=== PATIENT | male | born 1970 | race Caucasian/White ===

== ENCOUNTER 2024-01-31 12:27 | Emergency (ER) | payer OTHER, SELFPAY ==
[2024-01-31] VITALS (8 sets, daily range): BP systolic 136–169; BP diastolic 79–95; PULSE 82–99; RESP 16–18; TEMP 35.5–37.3; O2SAT 97–100; BMI 26.4
[2024-01-31 13:08] LABS: Add Manual Diff / Slide Review NO; Basophils Absolute Auto 0 /uL (0-100); Basophils Percent Auto 0.2 % (0-2); Eosinophils Absolute Auto 300 /uL (0-450); Eosinophils Percent Auto 1.5 % (2-4); Hemoglobin 15.7 g/dL (13.5-17.5); Lymphocytes Absolute Auto 1100 /uL (1100-4500); Lymphocytes Percent Auto 6.4 % (25-40); Mean Corpuscular HGB Conc 34.9 % (30-36); Mean Corpuscular Hemoglobin 31.8 PG (26-34); Mean Corpuscular Volume 91.2 fL (80-100); Monocytes Absolute Auto 2100 /uL (0-900); Monocytes Percent Auto 11.9 % (3-14); Neutrophils Absolute Auto 13900 /uL (1500-7000); Platelet Count 232 X10^3/uL (150-400); Red Blood Cell Count 4.93 X10^6/uL (4.5-5.9); Red Cell Distribution Width 13.5 % (11.6-14.8); White Blood Cell Count 17.3 X10^3/uL (4.5-11.0)
[2024-01-31 13:19] LABS: Alanine Aminotransferase 25 IU/L (<50); Albumin 4.5 g/dL (3.5-5.0); Albumin Globulin Ratio 1.3 (1.0-2.8); Alkaline Phosphatase 85 U/L (38-126); Aspartate Aminotransferase 28 IU/L (17-59); Bilirubin Total 1.7 mg/dL (0.2-1.3); Blood Urea Nitrogen 15 mg/dL (9-20); Calcium 9.6 mg/dL (8.4-10.2); Carbon Dioxide 29 mmol/L (22-32); Chloride 98 mmol/L (98-107); Estimated Glomerular Filt Rate > 60 mL/min (>60); Globulin 3.6 g/dL (1.7-4.1); Glucose 135 mg/dL (70-100); HEMOLYSIS < 15 (0-50); Lipase 403 U/L (23-300); Sodium 136 mmol/L (137-145); Total Protein 8.1 g/dL (6.3-8.2)
[2024-01-31 13:54] LABS: Urine Volume 10mL (spun)
--- NOTE | 2024-01-31 13:55 | DI.US.S_ITS ---
PROCEDURE: US ABDOMEN LIMITED INDICATIONS: RUQ, epigastric pain TECHNIQUE: Real-time scanning was performed of the abdominal and retroperitoneal organs, with image documentation. COMPARISON: None. FINDINGS: Liver: Liver is normal in size and homogeneous in echotexture. Gallbladder: No gallstones. No wall thickening. No pericholecystic edema. Negative sonographic Acevedo's sign. Biliary ducts: Intrahepatic bile ducts are non-dilated. Extrahepatic bile duct caliber measures 3 mm. Normal is 6-7 mm or less in diameter, or 10 mm or less post-cholecystectomy. Pancreas: Heterogeneous echogenicity of the pancreatic head. Miscellaneous: No free abdominal fluid. IMPRESSION: No gallbladder pathology. Heterogeneous echogenicity of the pancreatic head. Please see same day CT for further discussion. Dictated by: Eduardo Ortega M.D. on 01/31/2024 at 14:46 Approved by: Eduardo Ortega M.D. on 01/31/2024 at 14:47
[2024-01-31 13:58] LABS: Bacteria Urine None Seen; RBC Urine 1-5/HPF (0-5/HPF); Squamous Epithelial Cell Urine None Seen (0-5/HPF); WBC Urine None Seen (0-5/HPF)
--- NOTE | 2024-01-31 13:58 | DI.CT.S_ITS ---
PROCEDURE: CT CHEST ABD PEL W CON INDICATIONS: abd pain TECHNIQUE: After the administration of intravenous contrast, 5 mm thick sections acquired from the lung apices to the symphysis. 5 mm coronal and sagittal reformats were performed, with additional 7 mm MIP reformats through the lungs. For radiation dose reduction, the following was used: automated exposure control, adjustment of mA and/or kV according to patient size. COMPARISON: None. FINDINGS: Image quality: Excellent. CHEST: Lower Neck: No enlarged lymph nodes. Thyroid: No thyroid nodules which require sonographic follow up, per consensus guidelines. Axillae: No enlarged lymph nodes. Chest Wall: Unremarkable. Lungs and Pleura: No pneumothorax or pleural effusions. No consolidation or suspicious nodules. Heart: Heart size is normal. No pericardial effusion. Thoracic Vessels: The aorta and pulmonary arteries demonstrate normal size. Mediastinum and [place]: No enlarged lymph nodes. Esophagus: No wall thickening. No hiatal hernia. ABDOMEN: Liver: No solid mass. Coarse calcification along the medial, posterior margin, probably post infectious, posttraumatic or inflammatory. Gallbladder: No radiopaque gallstones or wall thickening. Biliary ducts: No biliary dilation. Pancreas: Homogeneous enhancement of the pancreas. There is fat stranding about the pancreatic head. No ductal dilation. No acute peripancreatic collection. Spleen: Size is within normal limits. Adrenal Glands: No adrenal nodules. Kidneys and Ureters: No hydronephrosis. No solid mass. No complex renal cystic lesion which requires follow up. Stomach and Bowel: Normal colonic caliber, without significant wall thickening. Colonic diverticulosis without evidence of diverticulitis. Peritoneum: No abnormal intraperitoneal fluid. No free air. Ventral Wall: No significant ventral hernia. Small umbilical hernia containing fat. Abdominal Nodes: No retroperitoneal or mesenteric adenopathy by size criteria. Vessels: Aorta and inferior vena cava are normal in size. Splenic vein is widely patent. PELVIS: Pelvic Organs: Unremarkable. Bladder: No bladder wall thickening, accounting for underdistention. Pelvic Nodes: No enlarged lymph nodes. Miscellaneous: Small , fat containing inguinal hernias. Bones: No aggressive osseous abnormality. IMPRESSION: Acute interstitial pancreatitis. No vascular complication or acute peripancreatic collection. Colonic diverticulosis without evidence of diverticulitis. Dictated by: Eduardo Ortega M.D. on 01/31/2024 at 14:42 Approved by: Eduardo Ortega M.D. on 01/31/2024 at 14:45
[2024-01-31 13:59] LABS: Lactate (Lactic Acid) 3.1 mmol/L (0.7-2.1)
[2024-01-31] MEDS: SODIUM CHLORIDE 0.9% 1,000 ML 1000 ML IV (14:19)
[2024-01-31] MEDS: KETOROLAC 30 MG/ML VIAL 15 MG IV (14:20)
[2024-01-31] MEDS: ONDANSETRON 4 MG/2 ML INJ IV (14:20)
--- NOTE | 2024-01-31 14:37 | ED_ITS ---
HPI - Abdominal Pain <Shani Anderson PA-C - Last Filed: 01/31/24 18:49> General Chief Complaint: Abdominal Pain Stated Complaint: sent by pcp, rule out diverticulitis Time Seen by Provider: 01/31/24 12:49 Source: patient Mode of arrival: Ambulatory History of Present Illness HPI narrative: 53-year-old male with past medical history hypertension, hyperlipidemia, obstructive sleep apnea presents to the ED with 3 days of abdominal pain, constipation. Patient states that his symptoms started over the weekend as epigastric and periumbilical pain, he felt constipated and took some laxatives. Patient had a bowel movement this morning. No hematochezia or melena. Patient also complains of mid upper back pain. Patient endorses subjective fever, chills, nausea. Denies chest pain, shortness of breath, rhinorrhea, cough, vomiting, lightheadedness, dizziness, syncope. No history of abdominal surgeries. No history of kidney stones or gallstones. Patient was seen by his PCP this morning, sent to the ED for further evaluation and due to concern for diverticulitis. No history of prior diverticulitis. Patient does drink alcohol occasionally, denies heavy drinking. Patient did endorse that 2 Saturdays ago, he did consume a lot of alcohol when his community got together for a [email or web address] green party. Related Data Previous Rx's Medication Instructions Recorded ciprofloxacin HCl 500 mg tablet 500 mg PO BID #6 tabs 09/21/16 (Cipro) doxycycline monohydrate 100 mg 100 mg PO BID #44 caps 09/21/16 capsule albuterol sulfate 90 mcg/actuation 1 puff INH SEE INSTRUCTIONS ##8 10/04/16 aerosol inhaler (Ventolin HFA) azithromycin 250 mg tablet 250 mg PO QDAY #6 tabs 10/04/16 (Zithromax) fluticasone propionate 50 0 intranasal SEE INSTRUCTIONS ##1 10/04/16 mcg/actuation nasal spray,suspension (Flonase Allergy Relief) hydrocodone 10 mg-chlorpheniramine 5 ml OR BID #115 mL 10/04/16 8 mg/5 mL oral susp extend.rel 12hr (Tussionex Pennkinetic ER) ondansetron 4 mg disintegrating 4 mg PO Q8H PRN nausea and 01/31/24 tablet vomiting #30 tabs oxycodone-acetaminophen 5 mg-325 1 tab PO TID PRN pain #15 tabs 01/31/24 mg tablet Allergies Allergy/AdvReac Type Severity Reaction Status Date / Time No Known Drug Allergies Allergy Verified 01/31/24 12:40 Review of Systems <Shani Anderson PA-C - Last Filed: 01/31/24 18:49> Constitutional Constitutional: Reports chills, Denies fatigue, Reports fever(s), Denies frequent falls, Denies lethargy and Denies weakness Eyes Eyes: Denies change in vision, Denies eye discharge, Denies irritation and Denies loss of vision ENT Ears, Nose, Mouth, and Throat: Denies change in voice, Denies dizziness, Denies neck pain, Denies sore throat and Denies throat swelling Cardiovascular Cardiovascular: Denies chest pain, Denies irregular heart rhythm, Denies lightheadedness, Denies palpitations, Denies dyspnea, Denies dyspnea on exertion and Denies orthopnea Respiratory Respiratory: Denies cough, Denies dyspnea, Denies dyspnea on exertion and Denies wheezing Gastrointestinal Gastrointestinal: Reports abdominal pain, Denies change in bowel habits, Reports constipation, Denies diarrhea, Reports nausea and Denies vomiting Musculoskeletal Musculoskeletal: Reports back pain, Denies neck pain and Denies numbness Integumentary/Breasts Skin/Breast: Denies pruritus, Denies erythema, Denies rash and Denies wounds Neurologic Neurologic: Denies behavioral changes, Denies confusion, Denies dizziness, Denies frequent falls, Denies loss of vision, Denies numbness and Denies weakness Psychiatric Psychiatric: Denies anxiety, Denies behavioral changes, Denies confusion, Denies depression, Denies homicidal ideation and Denies suicidal ideation Endocrine Endocrine: Denies fatigue, Denies flushing and Denies palpitations Hematologic/Lymphatic Hematologic/Lymphatic: Denies easy bruising Allergic/Immunologic Allergic/Immunologic: Denies urticaria, Denies throat swelling and Denies wheezing Patient History <Shani Anderson PA-C - Last Filed: 01/31/24 18:49> Surgical History (Updated 01/03/18 @ 06:03 by Conversion Provider) Status post myringotomy with insertion of tube Status post myringotomy with insertion of tube Family History (Updated 09/26/16 @ 00:00 by Conversion Provider) Father Age: 78 Essential hypertension High cholesterol Grandfather Mental health problem Grandmother Heart disease Lung infection Mother Age: 78 Heart disease Grandfather Heart disease Grandmother Heart disease Social History Smoking Status: Never smoker Smoking Status: Never smoker alcohol intake frequency: a few times a month Substance Use Type: does not use Exam <Shani Anderson PA-C - Last Filed: 01/31/24 18:49> Narrative Exam Narrative: Const General:?cooperative, healthy appearing and comfortable [facility] Head:?normal to inspection Ears:?hearing grossly normal bilaterally Nose:?external nose normal Face and sinus:?normal facial exam and sinuses nontender Mouth:?oral mucosae normal Throat:?posterior oropharynx normal Eyes General:?appearance normal, both eyes and all related structures Neck Neck:?normal visual inspection and no lymphadenopathy noted Resp Effort & Inspection:?normal respiratory effort Auscultation:?clear to auscultation bilaterally Cardio Rate:?regular rate Rhythm:?regular rhythm GI Abdomen is soft, nondistended, tender to palpation in the epigastric and right upper quadrants. No CVA tenderness. Neuro General:?patient alert, patient awake and patient oriented x3 Initial Vital Signs Initial Vital Signs: Vital Signs Temperature 96 F L 01/31/24 12:36 Pulse Rate 89 01/31/24 12:36 Respiratory Rate 16 01/31/24 12:36 Blood Pressure 159/95 H 01/31/24 12:36 Pulse Oximetry 99 01/31/24 12:36 Oxygen Delivery Method Room Air 01/31/24 12:36 <Violet Pham MD - Last Filed: 02/01/24 02:24> Initial Vital Signs Initial Vital Signs: Vital Signs Temperature 96 F L 01/31/24 12:36 Pulse Rate 89 01/31/24 12:36 Respiratory Rate 16 01/31/24 12:36 Blood Pressure 159/95 H 01/31/24 12:36 Pulse Oximetry 99 01/31/24 12:36 Oxygen Delivery Method Room Air 01/31/24 12:36 Course <Shani Anderson PA-C - Last Filed: 01/31/24 18:49> Orders Ordered: Discontinued Medications Sodium Chloride (Normal Saline 0.9%) 1,000 mls @ 1,000 mls/hr IV BOLUS ONE Stop: 01/31/24 15:04 Last Infusion: 01/31/24 15:15 Dose: Infused Documented By: Admin: 01/31/24 14:19 Dose: 1,000 mls/hr Documented By: CHERYL Ciprofloxacin (Cipro) 400 mg in 200 mls @ 200 mls/hr IV NOW ONE Stop: 01/31/24 16:33 Last Infusion: 01/31/24 17:15 Dose: Infused Documented By: Admin: 01/31/24 15:52 Dose: 200 mls/hr Documented By: CHERYL Metronidazole (Flagyl) 500 mg in 100 mls @ 100 mls/hr IV NOW ONE Stop: 01/31/24 16:33 Last Infusion: 01/31/24 19:45 Dose: Infused Documented By: Admin: 01/31/24 18:36 Dose: 100 mls/hr Documented By: HAZEL Sodium Chloride (Normal Saline 0.9%) 1,000 mls @ 100 mls/hr IV CONT BARBARA Last Infusion: 01/31/24 20:44 Dose: Infused Documented By: Admin: 01/31/24 15:52 Dose: 100 mls/hr Documented By: CHERYL Ketorolac Tromethamine (Ketorolac 30 Mg/Ml Vial) 15 mg IV NOW ONE Stop: 01/31/24 14:01 Last Admin: 01/31/24 14:20 Dose: 15 mg Documented By: CHERYL Morphine Sulfate (Morphine 4 Mg/Ml Inj) 4 mg IV NOW ONE Stop: 01/31/24 16:21 Last Admin: 01/31/24 16:24 Dose: 4 mg Documented By: CHERYL Ondansetron HCl (Ondansetron 4 Mg Odt) 4 mg PO NOW PRN PRN Reason: Nausea And Vomiting Ondansetron HCl (Ondansetron 4 Mg/2 Ml Inj) 4 mg IV NOW PRN PRN Reason: Nausea And Vomiting Ondansetron HCl (Ondansetron 4 Mg/2 Ml Inj) 4 mg IV NOW ONE Stop: 01/31/24 14:01 Last Admin: 01/31/24 14:20 Dose: 4 mg Documented By: CHERYL Ondansetron HCl (Ondansetron 4 Mg Odt Prepack) 1 bottle MISC DIRECTED ONE Stop: 01/31/24 20:33 Last Admin: 01/31/24 20:44 Dose: 1 bottle Documented By: HAZEL Oxycodone/Acetaminophen (Oxycodone/Apap 5/325 Prepack) 1 bottle MISC DIRECTED ONE Stop: 01/31/24 20:33 Last Admin: 01/31/24 20:44 Dose: 1 bottle Documented By: HAZEL Vital Signs Vital signs: Vital Signs - 8 hr 01/31/24 18:46 01/31/24 20:55 Pulse Rate 92 H 99 H Respiratory Rate 16 16 Blood Pressure 139/91 H 169/93 H Pulse Oximetry 98 100 Oxygen Delivery Method Room Air Room Air <Violet Pahm MD - Last Filed: 02/01/24 02:24> Orders Ordered: Discontinued Medications Sodium Chloride (Normal Saline 0.9%) 1,000 mls @ 1,000 mls/hr IV BOLUS ONE Stop: 01/31/24 15:04 Last Infusion: 01/31/24 15:15 Dose: Infused Documented By: Admin: 01/31/24 14:19 Dose: 1,000 mls/hr Documented By: CHERYL Ciprofloxacin (Cipro) 400 mg in 200 mls @ 200 mls/hr IV NOW ONE Stop: 01/31/24 16:33 Last Infusion: 01/31/24 17:15 Dose: Infused Documented By: Admin: 01/31/24 15:52 Dose: 200 mls/hr Documented By: CHERYL Metronidazole (Flagyl) 500 mg in 100 mls @ 100 mls/hr IV NOW ONE Stop: 01/31/24 16:33 Last Infusion: 01/31/24 19:45 Dose: Infused Documented By: Admin: 01/31/24 18:36 Dose: 100 mls/hr Documented By: HAZEL Sodium Chloride (Normal Saline 0.9%) 1,000 mls @ 100 mls/hr IV CONT BARBARA Last Infusion: 01/31/24 20:44 Dose: Infused Documented By: Admin: 01/31/24 15:52 Dose: 100 mls/hr Documented By: CHERYL Ketorolac Tromethamine (Ketorolac 30 Mg/Ml Vial) 15 mg IV NOW ONE Stop: 01/31/24 14:01 Last Admin: 01/31/24 14:20 Dose: 15 mg Documented By: CHERYL Morphine Sulfate (Morphine 4 Mg/Ml Inj) 4 mg IV NOW ONE Stop: 01/31/24 16:21 Last Admin: 01/31/24 16:24 Dose: 4 mg Documented By: CHERYL Ondansetron HCl (Ondansetron 4 Mg Odt) 4 mg PO NOW PRN PRN Reason: Nausea And Vomiting Ondansetron HCl (Ondansetron 4 Mg/2 Ml Inj) 4 mg IV NOW PRN PRN Reason: Nausea And Vomiting Ondansetron HCl (Ondansetron 4 Mg/2 Ml Inj) 4 mg IV NOW ONE Stop: 01/31/24 14:01 Last Admin: 01/31/24 14:20 Dose: 4 mg Documented By: CHERYL Ondansetron HCl (Ondansetron 4 Mg Odt Prepack) 1 bottle MISC DIRECTED ONE Stop: 01/31/24 20:33 Last Admin: 01/31/24 20:44 Dose: 1 bottle Documented By: HAZEL Oxycodone/Acetaminophen (Oxycodone/Apap 5/325 Prepack) 1 bottle MISC DIRECTED ONE Stop: 01/31/24 20:33 Last Admin: 01/31/24 20:44 Dose: 1 bottle Documented By: HAZEL Vital Signs Vital signs: Vital Signs - 8 hr 01/31/24 18:46 01/31/24 20:55 Pulse Rate 92 H 99 H Respiratory Rate 16 16 Blood Pressure 139/91 H 169/93 H Pulse Oximetry 98 100 Oxygen Delivery Method Room Air Room Air MDM - Abdominal Pain <Shani Anderson PA-C - Last Filed: 01/31/24 18:49> Lab Data 01/31/24 12:49 01/31/24 12:49 Labs: Lab Results 01/31/24 01/31/24 01/31/24 Range/Units 12:49 13:35 15:38 WBC 17.3 H (4.5-11.0) X10^3/uL RBC 4.93 (4.5-5.9) X10^6/uL Hgb 15.7 (13.5-17.5) g/dL Hct 45.0 (41-53) % MCV 91.2 (80-100) fL MCH 31.8 (26-34) PG MCHC 34.9 (30-36) % RDW 13.5 (11.6-14.8) % Plt Count 232 (150-400) X10^3/uL Neut % (Auto) 80.0 H (50-75) % Lymph % (Auto) 6.4 L (25-40) % [place] % (Auto) 11.9 (3-14) % Eos % (Auto) 1.5 L (2-4) % Baso % (Auto) 0.2 (0-2) % Neut # (Auto) 21236 H (1297-7995) /uL Lymph # (Auto) 1100 (0314-4965) /uL [place] # (Auto) 2100 H (0-900) /uL Eos # (Auto) 300 (0-450) /uL Baso # (Auto) 0 (0-100) /uL Sodium 136 L (137-145) mmol/L Potassium 4.0 (3.4-5.1) mmol/L Chloride 98 (98-107) mmol/L Carbon Dioxide 29 (22-32) mmol/L BUN 15 (9-20) mg/dL Creatinine 0.79 (0.66-1.25) mg/dL Estimated GFR > 60 (>60) mL/min BUN/Creatinine Ratio 19.0 (6-22) Glucose 135 H (70-100) mg/dL Lactate 3.1 H 1.1 (0.7-2.1) mmol/L Calcium 9.6 (8.4-10.2) mg/dL Total Bilirubin 1.7 H (0.2-1.3) mg/dL AST 28 (17-59) IU/L ALT 25 (<50) IU/L Alkaline Phosphatase 85 (38-126) U/L Lactate Dehydrogenase 198 (120-246) U/L Total Protein 8.1 (6.3-8.2) g/dL Albumin 4.5 (3.5-5.0) g/dL Globulin 3.6 (1.7-4.1) g/dL Albumin/Globulin Ratio 1.3 (1.0-2.8) Triglycerides 92 (35-150) mg/dL Lipase 403 H (23-300) U/L Urine RBC 1-5/hpf (0-5/HPF) Urine WBC None seen (0-5/HPF) Ur Squamous Epith Cells None seen (0-5/HPF) Urine Bacteria None seen (None) Vol Urine Centrifuged 10ml (spun) Point of care testing: Urine Dip Bedside Urine Glucose Negative Bedside Urine Bilirubin - Negative Bedside Urine Ketone +++ 80 Urine Specific [place] 1.015 Bedside Urine Occult Blood +/- Bedside Urine pH 5.5 Bedside Urine Protein +/- 15 Bedside Urine Urobilinogen - Negative Bedside Urine Nitrite - Negative Bedside Urine Leukocytes - Negative Esterase MDM Narrative Medical decision making narrative: 53-year-old male with past medical history hypertension, hyperlipidemia, obstructive sleep apnea presents to the ED with 3 days of abdominal pain, constipation. Concern for pancreatitis versus cholelithiasis versus cholecystitis versus choledochal cholelithiasis versus gastritis versus peptic ulcer disease versus diverticulitis versus appendicitis versus UTI versus pyelonephritis versus nephrolithiasis versus other intra-abdominal pathology versus other. Will obtain labs, lipase, lactate, UA, CT abdomen pelvis, ultrasound abdomen. Will give IV fluids, ketorolac, Zofran for symptoms. Will reassess. Labs with an elevated white count of 17.3, elevated total bilirubin of 1.7, elevated lipase of 403. Lactate was elevated to 3.1. Urine shows some ketones and occult blood, no infection. CT abdomen pelvis shows acute interstitial pancreatitis. No vascular complication or acute peripancreatic collection. No other acute findings. Patient was given morphine for further pain control. Lactate improved 1.1 with IV fluids. Nausea controlled with Zofran. MRCP ordered for further characterization. Hospitalist Dr. Durand was consulted, he would prefer to wait for MRCP results prior to admitting. Patient signed out to Dr. Violet Pham. <Violet Pham MD - Last Filed: 02/01/24 02:24> Lab Data Labs: Lab Results 01/31/24 01/31/24 01/31/24 Range/Units 12:49 13:35 15:38 WBC 17.3 H (4.5-11.0) X10^3/uL RBC 4.93 (4.5-5.9) X10^6/uL Hgb 15.7 (13.5-17.5) g/dL Hct 45.0 (41-53) % MCV 91.2 (80-100) fL MCH 31.8 (26-34) PG MCHC 34.9 (30-36) % RDW 13.5 (11.6-14.8) % Plt Count 232 (150-400) X10^3/uL Neut % (Auto) 80.0 H (50-75) % Lymph % (Auto) 6.4 L (25-40) % [place] % (Auto) 11.9 (3-14) % Eos % (Auto) 1.5 L (2-4) % Baso % (Auto) 0.2 (0-2) % Neut # (Auto) 10147 H (9069-0381) /uL Lymph # (Auto) 1100 (2270-8162) /uL [place] # (Auto) 2100 H (0-900) /uL Eos # (Auto) 300 (0-450) /uL Baso # (Auto) 0 (0-100) /uL Sodium 136 L (137-145) mmol/L Potassium 4.0 (3.4-5.1) mmol/L Chloride 98 (98-107) mmol/L Carbon Dioxide 29 (22-32) mmol/L BUN 15 (9-20) mg/dL Creatinine 0.79 (0.66-1.25) mg/dL Estimated GFR > 60 (>60) mL/min BUN/Creatinine Ratio 19.0 (6-22) Glucose 135 H (70-100) mg/dL Lactate 3.1 H 1.1 (0.7-2.1) mmol/L Calcium 9.6 (8.4-10.2) mg/dL Total Bilirubin 1.7 H (0.2-1.3) mg/dL AST 28 (17-59) IU/L ALT 25 (<50) IU/L Alkaline Phosphatase 85 (38-126) U/L Lactate Dehydrogenase 198 (120-246) U/L Total Protein 8.1 (6.3-8.2) g/dL Albumin 4.5 (3.5-5.0) g/dL Globulin 3.6 (1.7-4.1) g/dL Albumin/Globulin Ratio 1.3 (1.0-2.8) Triglycerides 92 (35-150) mg/dL Lipase 403 H (23-300) U/L Urine RBC 1-5/hpf (0-5/HPF) Urine WBC None seen (0-5/HPF) Ur Squamous Epith Cells None seen (0-5/HPF) Urine Bacteria None seen (None) Vol Urine Centrifuged 10ml (spun) Point of care testing: Urine Dip Bedside Urine Glucose Negative Bedside Urine Bilirubin - Negative Bedside Urine Ketone +++ 80 Urine Specific [place] 1.015 Bedside Urine Occult Blood +/- Bedside Urine pH 5.5 Bedside Urine Protein +/- 15 Bedside Urine Urobilinogen - Negative Bedside Urine Nitrite - Negative Bedside Urine Leukocytes - Negative Esterase MDM Narrative Medical decision making narrative: 53-year-old male with past medical history hypertension, hyperlipidemia, obstructive sleep apnea presents to the ED with 3 days of abdominal pain, constipation. Concern for pancreatitis versus cholelithiasis versus cholecystitis versus choledochal cholelithiasis versus gastritis versus peptic ulcer disease versus diverticulitis versus appendicitis versus UTI versus pyelonephritis versus nephrolithiasis versus other intra-abdominal pathology versus other. Will obtain labs, lipase, lactate, UA, CT abdomen pelvis, ultrasound abdomen. Will give IV fluids, ketorolac, Zofran for symptoms. Will reassess. Labs with an elevated white count of 17.3, elevated total bilirubin of 1.7, elevated lipase of 403. Lactate was elevated to 3.1. Urine shows some ketones and occult blood, no infection. CT abdomen pelvis shows acute interstitial pancreatitis. No vascular complication or acute peripancreatic collection. No other acute findings. Patient was given morphine for further pain control. Lactate improved 1.1 with IV fluids. Nausea controlled with Zofran. MRCP ordered for further characterization. Hospitalist Dr. Durand was consulted, he would prefer to wait for MRCP results prior to admitting. Patient signed out to Dr. Violet Pham. Dr. Pham -case discussed with me, independent review of patient and chart performed. MRCP shows mild pancreatic edema without evidence of obstructing stone or infected fluid collection. Patient reassessed, he states his pain is currently a 3/4, he was mildly nauseous but states that he would like to try drinking fluids and crackers. All lab and imaging findings discussed with the patient at bedside. Offered admission for pain control and IV fluids, however patient stated that he would prefer to go home at this time and tried to manage his symptoms at home. Pain and nausea medication sent to pharmacy of choice and prepack sent home with patient for overnight symptom control. Clear liquid diet discussed with the patient as well as general progression to full diet as tolerated over the next week. Patient given strict ED return precautions if he feels that his symptoms are not well controlled or if he was not improving. Discharge Plan Departure Patient Disposition: Home Clinical Impression: Acute pancreatitis Qualifiers: Pancreatitis type: idiopathic Acute pancreatitis complication: unspecified Q ualified Code(s): K85.00 - Idiopathic acute pancreatitis without necrosis or infection Instructions: DI for Pancreatitis Activity Restrictions/Additional Instructions: Your laboratory work, CT imaging, MRI imaging indicate that you have acute pancreatitis. I do not know the exact cause of your pancreatitis, however 15- 20% of all cases of pancreatitis or idiopathic, meaning we do not have an obvious cause. Pain and nausea medications has been sent to your pharmacy. For the next several days I recommend following a clear liquid diet of small, low- fat meals. Over the next 3-6 days you may advance your diet as tolerated, however I do recommend a decrease in fat intake. If you drink alcohol I recommend against alcohol intake for the next several weeks. I recommend following up with the GI doctor since we do not know the cause of your pancreatitis. A referral is in your paperwork. Prescriptions: New ondansetron 4 mg tablet,disintegrating 4 mg PO Q8H PRN (Reason: nausea and vomiting) Qty: 30 0RF oxycodone-acetaminophen 5-325 mg tablet 1 tab PO TID PRN (Reason: pain) Qty: 15 0RF No Action ciprofloxacin HCl [Cipro] 500 MG tablet 500 mg PO BID Qty: 6 0RF doxycycline monohydrate 100 MG capsule 100 mg PO BID Qty: 44 0RF azithromycin [Zithromax] 250 MG tablet 250 mg PO QDAY Qty: 6 0RF hydrocodone-chlorpheniramine [Tussionex Pennkinetic ER] 115 ML suspension,extended rel 12 hr 5 ml OR BID Qty: 115 0RF albuterol sulfate [Ventolin HFA] 90 MCG/PUFF HFA aerosol inhaler 1 puff INH SEE INSTRUCTIONS Qty: 8 0RF fluticasone propionate [Flonase Allergy Relief] 9.9 ML spray,suspension 0 Intranasal SEE INSTRUCTIONS Qty: 1 0RF Referrals: Magan Cramer MD [Non-Staff] - Kenia Betancourt MD [Primary Care Provider] - Stand Alone Forms: Patient Portal/API
[2024-01-31 15:17] LABS: Lactate Dehydrogenase 198 U/L (120-246)
[2024-01-31 15:18] LABS: Triglycerides 92 mg/dL (35-150)
[2024-01-31 15:26] LABS: Reflexed Lactate in 2 Hours Y
--- NOTE | 2024-01-31 15:34 | DI.MRI.S_ITS ---
PROCEDURE: MR AB PANCREATIC/MRCP PROTOCOL INDICATIONS: pancreatitis TECHNIQUE: Coronal HASTE through the abdomen, axial 2-D FLASH in- and [id number], and breath-hold T2 FSE with fat saturation through the biliary system and pancreas. Oblique coronal and axial thin-slice HASTE, radial thick-slab HASTE centered on the extrahepatic bile ducts. Intravenous secretin: Not requested. COMPARISON: [facility], CT, CT CHEST ABD PEL W CON, 01/31/2024, 14:03. [facility], US, US ABDOMEN LIMITED, 01/31/2024, 14:16. FINDINGS: Image quality: Diagnostic. Gallbladder: No gallstones or wall thickening. Biliary ducts: No biliary dilation. Pancreas: Mild peripancreatic edema is seen at the pancreatic head. No focal fluid collection. No pancreatic duct dilatation. Pancreatic body and tail appear normal. OTHER: Lung bases: Unremarkable. Liver: No solid mass. Spleen: Size is within normal limits. Adrenal Glands: No adrenal nodules. Kidneys and Ureters: No hydronephrosis. No solid mass. No complex renal cystic lesion which requires follow up. Stomach and Bowel: Normal colonic caliber, without significant wall thickening. Peritoneum: No abnormal intraperitoneal fluid. No free air. Ventral Wall: No hernia. Abdominal Nodes: No retroperitoneal or mesenteric adenopathy by size criteria. Vessels: Aorta and inferior vena cava are normal in size. Bones: No aggressive osseous abnormality. IMPRESSION: 1. Mild peripancreatic edema is consistent with the provided clinical history of pancreatitis. No focal fluid collection. 2. No gallstones or choledocholithiasis. No biliary ductal dilatation. Approved by: Cade Alcantara M.D. on 01/31/2024 at 20:19
[2024-01-31] MEDS: SODIUM CHLORIDE 0.9% 1,000 ML 100 ML IV (15:52)
[2024-01-31] MEDS: CIPROFLOXACIN 400 MG/200 ML PIGGYBACK 200 MG IV (15:52)
[2024-01-31 15:59] LABS: Lactate 2HR (Lactic Acid Rflx) 1.1 mmol/L (0.7-2.1)
[2024-01-31] MEDS: MORPHINE 4 MG/ML INJ IV (16:24)
--- NOTE | 2024-01-31 16:39 | PM.CALLCOV.1 ---
Call Coverage Note Note Date of Patient Contact: 01/31/24 Time of Patient Contact: 16:40 Narrative of Care Provided: 53 M presented to the ER with abdominal pain, epigastric radiating to the back. CT scan shows pancreatitis. Bilirubin is slightly elevated, no AST/ALT elevations. Triglycerides 92. Lactate high initially now improved to normal. Has MRCP ordered. Given high WBC count, started on antibiotics for possible cholangitis, await MRCP results prior to acceptance to [facility] given no GI consultation available. If MRCP is negative can accept to hospitalist service for ? idiopathic vs alcoholic pancreatitis.
[2024-01-31] MEDS: metroNIDAZOLE 500 MG/100 ML PIGGYBACK 100 MG IV (18:36)
[2024-01-31] MEDS: OXYCODONE/APAP 5/325 PREPACK 1 BOTTLE MISC (20:44)
[2024-01-31] MEDS: ONDANSETRON 4 MG ODT PREPACK 1 BOTTLE MISC (20:44)
== END 2024-01-31 20:57 | disposition home or self-care (01) ==
PROVIDERS: Emergency Medicine; Student in an Organized Health Care Education/Training Program; Emergency Provider Emergency Medicine; Family Provider Family Medicine; PCP Family Medicine
DX: K85.00 Idiopathic acute pancreatitis without necrosis or infection (principal)
CPT/HCPCS: 36415; 71260; 74177; 74183; 76705; 80053; 81003; 81015; 83605; 83615; 83690; 84478; 85025; 87040; 87086; 93005; 96365; 96367; 96375; 99285; A9579; J0744; J1885; J2270; J2405; Q9967